=== PATIENT | female | born 1990 | race Hispanic/Latino ===

== ENCOUNTER 2023-11-30 02:45 | Emergency (ER) | payer MEDICAID ==
[2023-11-30 03:09] LABS: BASOPHILS # (AUTO) 0.06 K/uL (0.00-0.20); BASOPHILS % (AUTO) 0.5 % (0.0-5.0); EOSINOPHILS # (AUTO) 0.04 K/uL (0.00-0.70); EOSINOPHILS % (AUTO) 0.3 % (0.0-8.0); HEMATOCRIT 36.9 % (36-48); IMMATURE GRANULOCYTE ABSOLUTE 0.04 K/uL (0-1); LYMPHOCYTES # (AUTO) 2.5 K/uL (1.0-4.8); LYMPHOCYTES % (AUTO) 21.6 % (21.0-51.0); MEAN CORPUSCULAR HEMOGLOBIN 31.9 pg (27.0-33.0); MEAN CORPUSCULAR HGB CONC 35.2 g/dL (32.0-36.0); MEAN CORPUSCULAR VOLUME 90.7 fL (79-99); MONOCYTES # (AUTO) 0.6 K/uL (0.1-1.0); MONOCYTES % (AUTO) 4.9 % (3.0-13.0); NEUTROPHILS # (AUTO) 8.3 K/uL (1.8-7.7); NEUTROPHILS % (AUTO) 72.4 % (40.0-77.0); PLATELET COUNT (AUTO) 259 K/uL (130-400); RED BLOOD CELL COUNT(AUTO) 4.07 MIL/uL (4.00-5.50); RED CELL DISTRIBUTION WIDTH 11.5 % (11.0-15.5); WHITE BLOOD COUNT (AUTO) 11.5 K/uL (4.8-10.8)
[2023-11-30] MEDS: 0.9%NACL 1000ML 1,000 ML IV ONE (03:12)
[2023-11-30] MEDS: ondanSETRON 4MG INJ IVP ONE (03:12)
[2023-11-30] MEDS: morPHINE 2 MG SYG IVP ONE (03:12)
[2023-11-30 03:20] LABS: POTASSIUM 3.8 mmol/L (3.5-5.1)
[2023-11-30 03:41] LABS: PROTHROMBIN TIME 10.8 SEC (9.6-11.6)
[2023-11-30] MEDS ORDERED: NAPR-1084 PO (04:18)
[2023-11-30] MEDS: ketOROlac 30MG VIAL (30MG/ML) IVP ONE (04:26)
[2023-11-30 04:32] VITALS: BP 128/81; PULSE 60; RESP 18; TEMP 98.3; O2SAT 98
== END 2023-11-30 04:43 | disposition home or self-care (01) ==
LOC: EDH 02:45
DX: N83.201 Unspecified ovarian cyst, right side (principal)
CPT/HCPCS: 99285; 96374; 76856; 96375; 80048; 84703; 85025; 85610; 36415; J2270; J7030; J2405; J1885